=== PATIENT | female | born 1945 | race Caucasian/White ===

== ENCOUNTER 2016-08-23 06:00 | Day surgery (SDC) | payer OTHER ==
[2016-08-23] MEDS ORDERED: LACTATED RINGERS 1,000 ML ONE (06:47)
--- NOTE | 2016-08-23 09:03 | OP ---
DATE OF PROCEDURE: 08/23/16 PREPROCEDURE DIAGNOSIS: 1. Change in bowel habits. 2. Diverticulosis. 3. Abdominal pain. POSTPROCEDURE DIAGNOSIS: 1. Diverticulosis of the sigmoid and descending colon. 2. No evidence of inflammatory bowel disease. PROCEDURE: 1. Colonoscopy to the cecum. 2. Biopsy. SURGEON: Wilber Gtz MD. ANESTHESIA: Monitored anesthesia care. FINDINGS: With the patient under adequate sedation, digital exam showed normal anal canal with no anal with no rectal masses. Colon preparation was good. The colon could be examined to good advantage. The scope was introduced all the way to the cecum. The ileocecal valve and appendix opening both were identified clearly. Moderate diverticulosis in the sigmoid and descending colon with spasm. No evidence of any ulceration, polyp, or bleeding. There was minimal inflammation around the peridiverticular area. Biopsy was obtained from the left colon to exclude microscopic colitis because of frequent diarrhea. Descending colon was otherwise normal. The splenic flexure and hepatic flexure were unremarkable. The transverse colon, ascending colon, cecum and ileocecal valve were all visualized, all landmarks identified. Reexamination of the colon on scope withdrawal showed no new additional findings. Total scope withdrawal time was 7 minutes. IMPRESSION: 1. Diverticulosis of the colon with spasm. May account for the change in bowel habit. 2. No evidence of any polyp or other lesion. Biopsy for microscopic colitic pending PLAN: Colon screening in 10 years. Advised to stay on colon medication. Stay on probiotic and fiber for control of bowel movements. #[id number] cc: Dr. Sarath Garcia, [place], [place] Wilber Gtz MD [facility]
[2016-08-23 11:21] VITALS: BP 123/67; TEMP 97.8; O2SAT 93
[2016-08-23] MEDS ORDERED: PROPOFOL 200 MG/20 ML VIAL IV ONE (12:00)
[2016-08-23] MEDS ORDERED: LIDOCAINE 1% 10 ML VIAL INJ ONE (12:00)
== END 2016-08-23 10:00 | disposition home or self-care (01) ==
LOC: AMB 06:00
PROVIDERS: ATTEND Internal Medicine Gastroenterology
DX: R19.7 Diarrhea, unspecified (principal); R10.30 Lower abdominal pain, unspecified; K57.30 Diverticulosis of large intestine without perforation or abscess without bleeding; K21.9 Gastro-esophageal reflux disease without esophagitis; Z88.8 Allergy status to other drugs, medicaments and biological substances; Z79.82 Long term (current) use of aspirin; Z79.899 Other long term (current) drug therapy

== ENCOUNTER → 2017-02-19 | Outpatient (CLI) | payer OTHER ==
--- NOTE | 2017-02-20 14:32 | MAM ---
EXAM DESCRIPTION: Screening Mammogram,Bilateral CLINICAL HISTORY: 71 yearsFemaleSCREENING. Perimenopausal. Hormone replacement five or more years ago.. COMPARISON: Digital screening mammography 02/08/2015 and 02/17/2016. No prior reports available. TECHNIQUE: Bilateral CC and MLO projection full-field images, digital screening mammographic technique. CAD was utilized. FINDINGS: The breast parenchymal density pattern is: Scattered areas of fibroglandular density. No skin thickening or nipple retraction . bilateral axillary lymph nodes and lymph nodes in the axillary tail. Bilateral scattered solitary microcalcifications. No focal, stellate mass or density, focal asymmetry , and no suspicious microcalcifications bilaterally. Stable mammograms compared to the study January 2015. IMPRESSION: BI-RADS CATEGORY: 2 - BENIGN FINDINGS. FOLLOW UP: Routine digital bilateral screening, one year interval from February 2017. Written communication explaining the findings and follow-up, will be mailed to the patient and referring health care provider. According to the [employer], yearly mammograms are recommended starting at age 40 and continuing as long as a woman is in good health. Any breast change noted on a breast self-exam should be reported promptly to the patient's healthcare provider. Breast MRI is recommended for women with an approximately 20-25% or greater lifetime risk of breast cancer, including women with a strong family history of breast or ovarian cancer and women who have been treated for Hodgkin's disease. A negative mammographic report should not delay tissue diagnosis in patients with significant clinical history or physical findings. Extremely dense breast tissue limits the sensitivity of digital mammography. Electronically signed by: Feliciano Cruz MD 02/20/2017 2:23 PM CDT Workstation: [id number]
== END | disposition home or self-care (01) ==
LOC: MAMMO 10:41
PROVIDERS: ATTEND General Practice
DX: Z12.31 Encounter for screening mammogram for malignant neoplasm of breast (principal)

== ENCOUNTER → 2017-08-24 | Outpatient (CLI) | payer OTHER ==
--- NOTE | 2017-08-26 09:39 | MRI ---
EXAM DESCRIPTION: Brain w/wo Contrast: Magnetic resonance imaging. CLINICAL HISTORY: HEADACHE COMPARISON: None. TECHNIQUE: Multiplanar, high-field MRI, multiple conventional sequences, without and with gadolinium IV contrast. No adverse reactions. Multiple axial diffusion sequences. FINDINGS: Multifocal right FLAIR and T2-weighted signal in the periventricular white matter and bhagat-white matter junctions of the cerebral hemispheres. . Smaller foci in the bilateral basal ganglia. No hemorrhage, no cerebral edema, no mass-effect. Normal contrast enhancement. Normal signal in the brainstem and cerebellar hemispheres. No hemorrhage, no cerebral edema, no mass-effect. Normal contrast enhancement. Concordance of the diffusion and non-diffusion sequences with no evidence of acute or subacute infarction. Cortical sulci, ventricles, and other CSF spaces, and the subdural spaces are normally configured for patients age. No effacement or displacement. No midline shift. No extra-axial hemorrhage. Normal contrast enhancement. Normal flow signal void in the major vessels of the [place], and the venous sinuses. IACs are symmetric bilaterally. Normal signal and enhancement in the bilateral mastoid air cells. No mass effect in the Cerebellopontine angles. Normal contrast enhancement. Pituitary gland occupies most of the sella. Normal contrast enhancement. Base of the cerebellar tonsils is above the foramen magnum. Also thickening in the posterior right ethmoids. Minimal mucoperiosteal thickening in the remaining paranasal sinuses. The bony calvarium is intact. IMPRESSION: 1. Diffuse bilateral asymmetric abnormal white matter signal in the bilateral periventricular white matter and subcortical white matter. Minimal abnormal signal in the bilateral basal ganglia. No mass effect or hemorrhage or abnormal contrast enhancement. Most likely cerebral microvascular disease and age-related changes. This likely demyelinating process, sequela of migraines, vasculitis, or inflammatory process. Normal signal in the brainstem and posterior fossa. 2. Chronic and acute inflammation in the paranasal sinuses. Electronically signed by: Feliciano Cruz MD 08/26/2017 9:38 AM [employer] Workstation: [id number]
== END | disposition home or self-care (01) ==
LOC: MRI 10:51
PROVIDERS: ATTEND General Practice
DX: R51 Headache (principal)

== ENCOUNTER → 2017-12-24 | Outpatient (CLI) | payer OTHER ==
--- NOTE | 2017-12-24 15:45 | CT ---
EXAM DESCRIPTION: CTA Chest: Computed Tomography. CLINICAL HISTORY: ABNORMAL D DIMERS COMPARISON: None. TECHNIQUE: Spiral-axial scans at 2.5 mm intervals through the pulmonary arteries and chest after bolus infusion of IV contrast. Lung algorithm 2.5-mm axial reconstructions. 10.0 mm bilateral PE oblique and 15 mm thoracic short axis rotated 3-D reformatted images. No adverse reactions. Total Exam DLP: 610.23 mGy-cm. This exam was performed according to our departmental CT dose-optimization program which includes automated exposure control, adjustment of the mA and/or kV according to patient size and/or use of iterative reconstruction technique; to reduce radiation dose to as low as reasonably achievable (ALARA). FINDINGS: The pulmonary arterial system is well demonstrated with contrast from the main pulmonary artery to the bilateral subsegmental branches with no filling defects. Symmetric bilateral normal caliber of the peripheral arterial branches in the upper and lower lobes. Atherosclerotic calcification in the thoracic aorta and the proximal brachiocephalic vessels. Inhomogeneous enhancement and density in the thyroid gland. Coronary artery calcifications. No soft tissue masses in the mediastinal or axilla. Bilateral posterior lung dependent atelectasis. No nodules or masses. No pleural effusion or pneumothorax. Subdiaphragmatic peritoneal space with no fluid. Normal size and density of the adrenal glands and spleen. Partial visualization of the gallbladder. Also included pancreas shows fatty density. Possible type III hiatal hernia. Multiple levels of thoracic spondylosis mostly inferior. Dextroscoliosis. Bilateral glenohumeral joint degenerative changes. IMPRESSION: 1. No CT evidence of acute or recurrent pulmonary embolus. 2. No soft tissue masses in the lung or mediastinum. No significant acute pulmonary abnormalities. 3. Possible type III hiatal hernia. Electronically signed by: Feliciano Cruz MD 12/24/2017 3:44 PM CDT
== END ==
LOC: CT 10:14
PROVIDERS: ATTEND General Practice
DX: R06.02 Shortness of breath (principal); R79.1 Abnormal coagulation profile

== ENCOUNTER → 2018-04-17 | Outpatient (CLI) | payer OTHER ==
--- NOTE | 2018-04-22 14:39 | MAM ---
EXAM DESCRIPTION: 3D Screening BILATERAL : Digital Mammography. CLINICAL HISTORY: 72 years Female SCREENING . No personal history or family history of breast cancer. Remote family history of ovarian cancer. No childbirth. Postmenopausal. Has taken HRT 5 or more years ago. Lifetime risk of developing breast cancer (Tyrer-Cuzick model) is 5.6 %. COMPARISON: 2-D digital screening bilateral study 02/19/2017. TECHNIQUE: Bilateral CC and MLO projection full-field images, Digital tomosynthesis mammographic technique. Bilateral digital 2-D full-field MLO images. CAD not utilized. FINDINGS: The breast parenchymal density pattern is: Scattered areas of fibroglandular density. No skin thickening or nipple retraction. Bilateral axillary lymph nodes and lymph nodes in the bilateral axillary tails. Bilateral solitary microcalcifications. Bilateral vascular calcifications. No new focal, stellate mass or density, focal asymmetry , and no suspicious microcalcifications bilaterally. Stable mammograms compared to prior study. Taking into account, differences in mammographic technique. IMPRESSION: Benign exam. BIRAD CATEGORY: 2 BENIGN FINDINGS. RECOMMENDATIONS: FOLLOW UP: Routine digital bilateral screening, one year interval from April 2018. Written communication explaining the IMPRESSION and follow-up, will be mailed to the patient and referring health care provider. According to the [employer], yearly mammograms are recommended starting at age 40 and continuing as long as a woman is in good health. Any breast change noted on a breast self-exam should be reported promptly to the patient's healthcare provider. Breast MRI is recommended for women with an approximately 20-25% or greater lifetime risk of breast cancer, including women with a strong family history of breast or ovarian cancer and women who have been treated for Hodgkin's disease. A negative mammographic report should not delay tissue diagnosis in patients with significant clinical history or physical findings. Extremely dense breast tissue limits the sensitivity of digital mammography. Electronically signed by: Feliciano Cruz MD 04/22/2018 2:37 PM CDT
== END ==
LOC: MAMMO 12:29
PROVIDERS: ATTEND General Practice
DX: Z12.31 Encounter for screening mammogram for malignant neoplasm of breast (principal)

== ENCOUNTER → 2018-05-28 | Outpatient (CLI) | payer OTHER | LOC: LAB.O 12:28 | PROVIDERS: ATTEND Internal Medicine Interventional Cardiology | DX: I48.91 Unspecified atrial fibrillation (principal) ==

== ENCOUNTER → 2018-07-10 | Outpatient (CLI) | payer OTHER ==
--- NOTE | 2018-07-10 15:34 | CT ---
EXAM DESCRIPTION: Chest w/Contrast CLINICAL HISTORY: 72 years, Female, COPD COMPARISON: Previous study December 25, 2007 CTA chest TECHNIQUE: Thin-section noncontrast axial CT images are obtained according to our protocol. Reconstructed MPR images are created and reviewed as well. FINDINGS: Lungs: No consolidating pulmonary infiltrate or groundglass infiltrate. No worrisome pulmonary mass or nodule. Moderate centrilobular emphysematous changes in the upper lobes. Correlate with pulmonary function testing. Mediastinum: Lymph nodes are normal in size. Moderate-sized hiatal hernia seen behind the heart. This appears similar to previous study, slightly smaller. Normal vascular contours. Heart size is prominent with no pericardial effusion. There is moderate coronary arterial calcification. Chest wall/axilla: No mass or adenopathy. Breast tissue appears symmetrical. Lower neck/supraclavicular: No mass or adenopathy. Upper abdomen: Unremarkable upper abdominal viscera. Coronal and sagittal reformatted images confirm the findings. Advanced degenerative disc disease in the lower C-spine and in the spine. Old healed rib fractures on the left. IMPRESSION: No acute process is identified in the chest. No worrisome change since previous study. This exam was performed according to our departmental dose-optimization program, which includes automated exposure control, adjustment of the mA and/or kV according to patient size and/or use of iterative reconstruction technique. Total DLP equals 760.82 mGycm. Electronically signed by: Albino Ham MD 07/10/2018 3:33 PM [employer]
== END ==
LOC: CT 13:44
DX: J44.9 Chronic obstructive pulmonary disease, unspecified (principal)

== ENCOUNTER → 2018-12-03 | Outpatient (CLI) | payer OTHER ==
--- NOTE | 2018-12-03 22:12 | CT ---
EXAM DESCRIPTION: Chest w/o Contrast : Computed Tomography. CLINICAL HISTORY: 73 years Female PNEUMONIA. COPD. COMPARISON: Chest CT scan with IV contrast 07/10/2018. TECHNIQUE: Spiral-axial scans at 5 x 5 mm intervals through the lungs and thorax without IV contrast. 2.5 x 5 mm lung algorithm axial reconstructions. Coronal and sagittal 2.0 Mm reconstructions. Total Exam DLP: 583.64 mGy-cm. This exam was performed according to our departmental dose-optimization program which includes automated exposure control, adjustment of the mA and/or kV according to patient size and/or use of iterative reconstruction technique; to reduce radiation dose to as low as reasonably achievable (ALARA). Nodule measurements under 10 mm are given as mean value of 3 axes diameters. FINDINGS: Lungs and large airways: Bilateral posterior dependent mild atelectasis slightly more on the right than left. Bilateral lung reticulations more numerous in the upper lobes. Pleural parenchymal scars in the inferior lingula and base. No abnormal nodules, no acute focal infiltrates or dominant masses. Pleural spaces: Occasional bilateral focal pleural thickening no effusion or pneumothorax. Mediastinum and Radha: Evaluation limited due to lack of IV contrast. No significantly enlarged lymph nodes or soft tissue masses. Great vessels and Heart: Evaluation limited due to lack of IV contrast. Atherosclerotic calcifications in the aortic arch and descending aorta also the proximal brachiocephalic vessels and coronary arteries with stents also present in the arteries. Soft tissues of neck base, axillae, and chest wall: Evaluation limited due to lack of IV contrast. Small nodule in the left thyroid gland. No enlarged lymph nodes. Upper abdomen: moderate hiatal hernia. No inflammatory changes in the peritoneal fat, no free fluid or free air. Slightly fatty pancreas . Osseous structures: Spondylosis at multiple levels of the mid and lower thoracic spine. Arthrosis bilateral sternoclavicular joints and bilateral glenohumeral joints more on the right. No blastic or lytic lesions. Multiple lateral left healing rib fractures. IMPRESSION: Minimal reticulation in the upper lung enriquez more than the lower lung enriquez consistent with clinical history, but no focal infiltrate. No abnormal nodules or mass. Minimal pleural thickening and pleural parenchymal scarring. Stable since the prior study June 2018. Electronically signed by: Feliciano Cruz MD 12/03/2018 10:09 PM CDT
== END ==
LOC: CT 12:53
PROVIDERS: ATTEND Internal Medicine
DX: J18.9 Pneumonia, unspecified organism (principal)

== ENCOUNTER → 2019-05-27 | Outpatient (CLI) | payer OTHER ==
--- NOTE | 2019-05-28 08:45 | CT ---
EXAM DESCRIPTION: Abdomen/Pelvis w/wo Contrast CLINICAL HISTORY: 73 years Female, HEMATURIA TECHNIQUE: This exam was performed according to our departmental dose-optimization program, which includes automated exposure control, adjustment of the mA and/or kV according to patient size and/or use of iterative reconstruction technique. COMPARISON: March 10, 2015 FINDINGS: Mitral annular calcifications. Bibasilar volume loss. No focal consolidation or suspicious pulmonary nodule. The liver is unremarkable. No suspicious hepatic lesion. No biliary dilatation. The gallbladder is unremarkable. The portal vein is patent. The spleen, pancreas and adrenal glands are unremarkable. Small hiatal hernia. No urolithiasis. Symmetric renal parenchymal enhancement. No suspicious enhancing renal lesion identified. No urothelial lesion. Bladder wall thickening with submucosal hyperenhancement and perivesicular fat stranding. No hydronephrosis. Scattered colonic diverticula without focal inflammatory change. No evidence of bowel obstruction. No findings to suggest appendicitis. No adenopathy. No focal fluid collection. No free air. Normal caliber abdominal aorta. Diffuse atherosclerotic disease. No acute or suspicious osseous abnormality. Scattered degenerative changes present. IMPRESSION: Findings of cystitis. No other CT findings to account for hematuria. Electronically signed by: Mohan Pruett MD 05/28/2019 8:43 AM CDT
--- NOTE | 2019-05-28 19:58 | MAM ---
EXAM DESCRIPTION: 3D Screening BILATERAL : Digital Mammography. CLINICAL HISTORY: 73 years Female SCREEN. No complaints. No personal history of breast cancer. Remote family history of breast cancer and ovarian cancer. Menarche age 11. No childbirth. Postmenopausal. Taken HRT more than 5 years before. Lifetime risk of developing breast cancer (Tyrer-Cuzick model)(%): 5.3. COMPARISON: Bilateral screening digital breast tomosynthesis. 04/17/2018. TECHNIQUE: Bilateral CC and MLO projection full-field images, digital tomosynthesis mammographic technique. Bilateral digital 2-D full-field MLO images. CAD not available for tomosynthesis or 2-D images. FINDINGS: The breast parenchymal density pattern is: Scattered areas of fibroglandular density. No skin thickening or nipple retraction. Bilateral axillary lymph nodes. Bilateral vascular calcifications. Bilateral solitary microcalcifications. Stable mid breast nodule right. No new focal, stellate mass or density, focal asymmetry , and no suspicious microcalcifications bilaterally. Stable mammograms compared to prior study. IMPRESSION: Benign exam. BIRAD CATEGORY: 2 BENIGN FINDINGS. RECOMMENDATIONS: FOLLOW UP: Routine digital bilateral mammographic screening, one year interval from May 2019. Written communication explaining the IMPRESSION and follow-up, will be mailed to the patient and referring health care provider. According to the [employer], yearly mammograms are recommended starting at age 40 and continuing as long as a woman is in good health. Any breast change noted on a breast self-exam should be reported promptly to the patient's healthcare provider. Breast MRI is recommended for women with an approximately 20-25% or greater lifetime risk of breast cancer, including women with a strong family history of breast or ovarian cancer and women who have been treated for Hodgkin's disease. A negative mammographic report should not delay tissue diagnosis in patients with significant clinical history or physical findings. Extremely dense breast tissue limits the sensitivity of digital mammography. Electronically signed by: Feliciano Cruz MD 05/28/2019 7:57 PM CDT
== END ==
LOC: CT 13:49
PROVIDERS: ATTEND General Practice
DX: Z12.31 Encounter for screening mammogram for malignant neoplasm of breast (principal); N30.91 Cystitis, unspecified with hematuria

== ENCOUNTER → 2020-07-14 | Outpatient (CLI) | payer OTHER | LOC: LAB.O 15:39 | PROVIDERS: ATTEND Urology | DX: R31.0 Gross hematuria (principal) ==